=== PATIENT | male | born 1960 | race Two or more races ===

== ENCOUNTER 2020-07-11 14:29 | Emergency (ER) | payer OTHER ==
[~2020-07-11] VITALS: Ht 170.2 cm; Wt 81.6 kg
[2020-07-11 14:36] VITALS: BP 127/89
--- NOTE | 2020-07-11 15:47 | NUR ---
COVID SWAB SENT. PATIENT A/OX4, BREATHING EVEN AND UNLABORED, NOS OB NOTED, NEEDS ATTENDED. KEPT COMFORTABLE. AMBULATORY WITH STEADY GAIT. Patient discharged to home in stable condition. Written and verbal after care instructions given. Patient verbalizes understanding of instruction.
== END 2020-07-11 15:49 | disposition home or self-care (01) ==
LOC: ER 14:39
DX: U07.1 COVID-19 (principal); R50.9 Fever, unspecified; R51.9 Headache, unspecified
CPT/HCPCS: 99283; C9803; U0003